=== PATIENT | female | born 1990 | race Caucasian/White ===

== ENCOUNTER 2017-02-11 10:00 | Emergency (ER) | payer OTHER ==
[~2017-02-11] VITALS: Ht 152.4 cm; Wt 44.0 kg
--- NOTE | 2017-02-11 11:12 | REP ---
Clinical: Vertigo and left sided headache . Comparison: None . Findings: The ventricles, sulci, and cisterns are normal in position and appearance. Monzon-white differentiation is maintained. No acute intracranial hemorrhage, mass/mass effect, pathology or trauma/injury. No evidence for acute infarction. No extra-axial fluid collection. Calvarium is intact. Small amount of fluid and mucosal thickening to the left ethmoid sinuses may reflect sinusitis. The mastoid air cells are well-aerated and clear. Impression: Normal noncontrast head CT. Minimal sinus disease. No evidence for acute intracranial pathology or trauma/injury. Signed by Angel Savage MD 02/11/2017 11:05 A
[2017-02-11] MEDS ORDERED: MECLIZINE 25 MG TABLET PO ONE (11:30)
[2017-02-11] MEDS ORDERED: IBUPROFEN 600 MG TAB PO ONE (11:30)
[2017-02-11] MEDS ORDERED: ZOFR4TAB3 PO (12:12)
[2017-02-11] MEDS ORDERED: MECL-68 PO (12:12)
[2017-02-11 12:34] VITALS: BP 112/72
== END 2017-02-11 12:34 | disposition home or self-care (01) ==
LOC: M ED 10:44
DX: H81.10 Benign paroxysmal vertigo, unspecified ear (principal); R51 Headache

== ENCOUNTER → 2017-02-20 | Outpatient (REF) | payer OTHER ==
[~2017-02-20] MED LIST: MECL-68 PO; ZOFR4TAB3 PO
[2017-02-20 14:29] LABS: MEAN CORPUSCULAR HGB CONC 33.2 g/dl (32.0-36.5); MEAN CORPUSCULAR VOLUME 90.5 fl (80.0-96.0); RED CELL DISTRIBUTION WIDTH 12.5 % (11.5-14.5); WHITE BLOOD COUNT 8.8 K/mm3 (4.0-10.0)
[2017-02-20 15:26] LABS: FREE T4 1.11 NG/DL (0.76-1.46)
== END ==
LOC: M LAB REF 13:50
PROVIDERS: ATTEND Advanced Practice Midwife
DX: E04.9 Nontoxic goiter, unspecified (principal)